=== PATIENT | male | born 1945 | race Caucasian/White ===

== ENCOUNTER → 2019-07-13 11:08 | Outpatient (CLI) | payer MEDICARE, SELFPAY ==
[2019-07-13 12:10] LABS: Appearance Urine UA CLOUDY; Bilirubin Urine UA NEGATIVE (NEGATIVE); Color Urine UA RED; Glucose Urine UA NEGATIVE (Negative); Ketones Urine UA NEGATIVE (NEGATIVE); Leukocyte Esterase Urine UA TRACE (NEGATIVE); Nitrite Urine UA POSITIVE (Negative); Occult Blood Urine UA 3+ (Negative); Protein Urine UA 2+ (Negative); Specific Gravity Urine UA 1.015 (1.000-1.035); Urobilinogen Urine UA 0.2 E.U./dL (0.2); pH Urine UA 6.5 (4.5-8.0)
[2019-07-13 12:47] LABS: Bacteria Urine Moderate (10-30); Culture Indicated Urine Specimen Cultured; RBC Urine >100/HPF (0-5/HPF); WBC Urine 1-5/HPF (0-5/HPF)
== END ==
PROVIDERS: Family Provider Internal Medicine; PCP Internal Medicine; Referring Provider Internal Medicine; Visit Provider Internal Medicine
DX: R31.9 Hematuria, unspecified (principal); N40.0 Benign prostatic hyperplasia without lower urinary tract symptoms
CPT/HCPCS: 36415; 81001; 84153; 87086

== ENCOUNTER → 2019-07-27 13:34 | Outpatient (CLI) | payer MEDICARE, SELFPAY ==
[2019-07-27 14:07] LABS: Hematocrit 41.6 % (41-53); Hemoglobin 14.5 g/dL (13.5-17.5); Mean Corpuscular HGB Conc 34.9 % (30-36); Mean Corpuscular Hemoglobin 32.4 PG (26-34); Mean Corpuscular Volume 92.8 fL (80-100); Platelet Count 158 X10^3/uL (150-400); Red Blood Cell Count 4.48 X10^6/uL (4.5-5.9); Red Cell Distribution Width 14.9 % (11.6-14.8); White Blood Cell Count 6.9 X10^3/uL (4.5-11.0)
[2019-07-27 14:48] LABS: BUN Creatinine Ratio 20.7 (6-22); Blood Urea Nitrogen 19 mg/dL (9-20); Calcium 9.3 mg/dL (8.4-10.2); Carbon Dioxide 28 mmol/L (22-32); Chloride 102 mmol/L (98-107); Estimated Glomerular Filt Rate > 60.0 mL/min (>60); Glucose 93 mg/dL (80-110); HEMOLYSIS < 15 (0-50); Sodium 139 mmol/L (137-145)
[2019-07-28 13:36] LABS: SARS CoV19 IgG Positive (Negative)
== END ==
PROVIDERS: Family Provider Internal Medicine; PCP Internal Medicine; Referring Provider Internal Medicine; Visit Provider Internal Medicine
DX: U07.1 COVID-19 (principal)
CPT/HCPCS: 36415; 80048; 85027; 86769

== ENCOUNTER → 2019-09-12 10:44 | Outpatient (CLI) | payer MEDICARE, SELFPAY ==
[2019-10-01 11:36] LABS: Stone Analysis Source NOT PROVIDED
[2019-10-01 11:37] LABS: Size 4X4
[2019-10-01 11:39] LABS: Ca oxalate monohydr 70
[2019-10-01 11:40] LABS: Ca oxalate dihydrate 30
== END ==
PROVIDERS: Family Provider Internal Medicine; PCP Internal Medicine; Visit Provider Specialist
DX: N21.0 Calculus in bladder (principal); N13.8 Other obstructive and reflux uropathy; N21.9 Calculus of lower urinary tract, unspecified; N40.1 Benign prostatic hyperplasia with lower urinary tract symptoms
CPT/HCPCS: 82365; 87086

== ENCOUNTER → 2019-09-17 12:13 | Outpatient (CLI) | payer MEDICARE, SELFPAY ==
--- NOTE | 2019-09-17 12:16 | DI.CT.S_ITS ---
PROCEDURE: CT ABDOMEN PELVIS WO/W CON INDICATIONS: bladder stone TECHNIQUE: Optional 5 mm thick noncontrast images acquired from the diaphragm to the symphysis pubis. After the administration of intravenous contrast, 5 mm thick images acquired from the diaphragm to the symphysis pubis after a 10-minute delay. 2 mm thick coronal and sagittal reformats were then performed of the kidneys and ureters. For radiation dose reduction, the following was used: automated exposure control, adjustment of mA and/or kV according to patient size. COMPARISON: None. FINDINGS: Image quality: Excellent. Lung bases: Lung bases are clear. Heart size is normal. Urinary system: Both kidneys are normal in size, without hydronephrosis or nephrolithiasis on pre-contrast images. No perinephric fat stranding. There is normal bilateral renal enhancement. Renal calyces appear normal in morphology when filled with contrast. Opacified portions of both ureters demonstrate normal caliber. Bladder wall thickness is normal. There are multiple bladder calculi present layering posteriorly against the posterior bladder wall, and there is a calculus dependently, best seen on precontrast imaging, measuring up to 3.3 cm at a stellate calculus located posteriorly on the right. Smaller 5-8 mm calculi are seen bilaterally posteriorly against the bladder wall. A calculus is present within a recess of the bladder diverticulum to the right of midline centered on series 2, image 80, and postcontrast imaging can be seen within the distal right ureter crossing just medial to this area of sequestered calculus within a small bladder diverticulum. Other solid organs: Liver is normal in size and enhancement. Gallbladder appears previously resected . Biliary system is non dilated. Pancreas enhances normally. Spleen is normal in size and enhancement. No adrenal nodules. Peritoneum and bowel: Bowel loops demonstrate normal wall thickness and caliber. No free fluid or air. Nodes and vessels: No retroperitoneal or mesenteric adenopathy by size criteria. Aorta and inferior vena cava are normal in size. Abdominal wall: No ventral hernias. Pelvis: No pathologic free pelvic fluid. No inguinal hernias or adenopathy. Bones: No suspicious bony lesions. No vertebral body compression fractures. IMPRESSION: No hydronephrosis or urinary tract stone within the collecting system of either kidney. There is, however, a finding of multiple calculi within the bladder lumen and the largest of which measures up to 3.2 cm centered to the right of midline. No bladder wall mass is identified.. Dictated by: Viraj Floyd M.D. on 09/17/2019 at 15:56 Approved by: Viraj Floyd M.D. on 09/17/2019 at 16:00
[2019-09-17 13:07] LABS: Blood Urea Nitrogen 18 mg/dL (9-20); Calcium 9.4 mg/dL (8.4-10.2); Carbon Dioxide 31 mmol/L (22-32); Chloride 105 mmol/L (98-107); Estimated Glomerular Filt Rate > 60.0 mL/min (>60); Glucose 136 mg/dL (80-110); HEMOLYSIS < 15 (0-50); Potassium 4.1 mmol/L (3.4-5.1); Sodium 139 mmol/L (137-145)
== END ==
PROVIDERS: Family Provider Internal Medicine; PCP Internal Medicine; Referring Provider Specialist; Visit Provider Specialist
DX: N21.0 Calculus in bladder (principal); N32.3 Diverticulum of bladder; N40.1 Benign prostatic hyperplasia with lower urinary tract symptoms; N13.8 Other obstructive and reflux uropathy
CPT/HCPCS: 36415; 74178; 80048; Q9967

== ENCOUNTER → 2020-01-17 09:08 | Outpatient (CLI) | payer MEDICARE, SELFPAY ==
[2020-01-17 10:58] LABS: Prostate Specific Antigen 3.11 ng/mL (0.10-4.00)
== END ==
PROVIDERS: Family Provider Internal Medicine; PCP Internal Medicine; Referring Provider Specialist; Visit Provider Specialist
DX: N13.8 Other obstructive and reflux uropathy (principal); N40.1 Benign prostatic hyperplasia with lower urinary tract symptoms
CPT/HCPCS: 36415; 84153

== ENCOUNTER → 2020-03-26 19:35 | Outpatient (ROUT) | payer MEDICARE, SELFPAY ==
[2020-03-26 20:00] LABS: Aspartate Aminotransferase 55 IU/L (17-59); BUN Creatinine Ratio 19.1 (6-22); Blood Urea Nitrogen 18 mg/dL (9-20); Calcium 9.2 mg/dL (8.4-10.2); Carbon Dioxide 32 mmol/L (22-32); Chloride 106 mmol/L (98-107); Cholesterol 130 mg/dL (140-199); Estimated Glomerular Filt Rate > 60.0 mL/min (>60); Glucose 121 mg/dL (80-110); HDL Cholesterol 45 mg/dL (40-60); HEMOLYSIS < 15 (0-50); LDL Cholesterol Calculated 73 mg/dL (<100); Potassium 3.7 mmol/L (3.4-5.1); Sodium 140 mmol/L (137-145); Triglycerides 62 mg/dL (35-150)
[2020-03-26 20:03] LABS: Hemoglobin A1C% w Est Avg Glu 6.3 % (4.0-6.0)
== END ==
PROVIDERS: Family Provider Internal Medicine; PCP Internal Medicine; Visit Provider Internal Medicine
DX: I10 Essential (primary) hypertension (principal); E78.2 Mixed hyperlipidemia; R73.01 Impaired fasting glucose
CPT/HCPCS: 80048; 80061; 83036; 84450

== ENCOUNTER → 2020-08-12 14:39 | Outpatient (CLI) | payer OTHER, SELFPAY ==
[2020-08-12 16:17] LABS: Prostate Specific Antigen 3.35 ng/mL (0.10-4.00)
== END ==
PROVIDERS: Family Provider Internal Medicine; PCP Internal Medicine; Referring Provider Specialist; Visit Provider Specialist
DX: N40.1 Benign prostatic hyperplasia with lower urinary tract symptoms (principal); N13.8 Other obstructive and reflux uropathy; N21.0 Calculus in bladder; Z87.440 Personal history of urinary (tract) infections
CPT/HCPCS: 36415; 81002; 84153; 99215

== ENCOUNTER → 2021-02-02 09:56 | Outpatient (CLI) | payer OTHER, SELFPAY ==
[2021-02-02 12:43] LABS: Prostate Specific Antigen Scrn 3.71 ng/mL (0.1-4.0)
== END ==
PROVIDERS: Family Provider Internal Medicine; PCP Internal Medicine; Referring Provider Specialist; Visit Provider Specialist
DX: R97.20 Elevated prostate specific antigen [PSA] (principal)
CPT/HCPCS: 36415; G0103

== ENCOUNTER → 2021-07-02 14:19 | Outpatient (CLI) | payer OTHER, SELFPAY ==
[2021-07-02 15:32] LABS: Influenza A - CEPHEID Flu A NEGATIVE (NEGATIVE); Influenza B - CEPHEID Flu B NEGATIVE (NEGATIVE)
[2021-07-02 16:29] LABS: COVID-19 CEPHEID PCR (VTM/NP) Negative (Negative)
== END ==
PROVIDERS: Family Provider Internal Medicine; PCP Internal Medicine; Visit Provider Nurse Practitioner Family
DX: R05.9 Cough, unspecified (principal); Z20.822 Contact with and (suspected) exposure to COVID-19
CPT/HCPCS: 0240U

== ENCOUNTER → 2021-07-15 14:33 | Outpatient (CLI) | payer MEDICARE, SELFPAY ==
[2021-07-15 15:28] LABS: Hematocrit 41.5 % (41-53); Hemoglobin 14.1 g/dL (13.5-17.5); Mean Corpuscular HGB Conc 33.9 % (30-36); Mean Corpuscular Hemoglobin 31.4 PG (26-34); Mean Corpuscular Volume 92.7 fL (80-100); Platelet Count 312 X10^3/uL (150-400); Red Blood Cell Count 4.48 X10^6/uL (4.5-5.9); Red Cell Distribution Width 13.3 % (11.6-14.8); White Blood Cell Count 6.9 X10^3/uL (4.5-11.0)
[2021-07-15 16:55] LABS: Alanine Aminotransferase 39 IU/L (<50); Albumin Globulin Ratio 0.9 (1.0-2.8); Alkaline Phosphatase 112 U/L (38-126); Aspartate Aminotransferase 39 IU/L (17-59); BUN Creatinine Ratio 19.4 (6-22); Blood Urea Nitrogen 18 mg/dL (9-20); Calcium 9.1 mg/dL (8.4-10.2); Carbon Dioxide 32 mmol/L (22-32); Chloride 105 mmol/L (98-107); Cholesterol 147 mg/dL (140-199); Estimated Glomerular Filt Rate > 60 mL/min (>60); Globulin 4.3 g/dL (1.7-4.1); Glucose 105 mg/dL (80-110); HDL Cholesterol 32 mg/dL (40-60); HEMOLYSIS < 15 (0-50); LDL Cholesterol Calculated 100 mg/dL (<100); Potassium 4.2 mmol/L (3.4-5.1); Sodium 140 mmol/L (137-145); Total Protein 8.3 g/dL (6.3-8.2); Triglycerides 76 mg/dL (35-150)
[2021-07-15 17:05] LABS: TSH w/ Reflex to FT4 2.61 uIU/mL (0.47-4.68)
[2021-07-15 17:27] LABS: Prostate Specific Antigen 5.38 ng/mL (0.10-4.00)
== END ==
PROVIDERS: Family Provider Internal Medicine; PCP Internal Medicine; Referring Provider Internal Medicine; Visit Provider Internal Medicine
DX: E78.2 Mixed hyperlipidemia (principal); I10 Essential (primary) hypertension; N13.8 Other obstructive and reflux uropathy; N40.1 Benign prostatic hyperplasia with lower urinary tract symptoms
CPT/HCPCS: 36415; 80053; 80061; 84153; 84443; 85027

== ENCOUNTER → 2022-06-14 13:57 | Outpatient (CLI) | payer MEDICARE, SELFPAY ==
[2022-06-14 15:16] LABS: Prostate Specific Antigen 4.13 ng/mL (0.10-4.00)
== END ==
PROVIDERS: Family Provider Internal Medicine; PCP Internal Medicine; Referring Provider Urology; Visit Provider Urology
DX: Z12.5 Encounter for screening for malignant neoplasm of prostate (principal)
CPT/HCPCS: 36415; 84153; G0103

== ENCOUNTER → 2022-07-29 10:22 | Outpatient (CLI) | payer MEDICARE, SELFPAY ==
[2022-07-29 11:27] LABS: Hematocrit 43.1 % (41-53); Hemoglobin 14.8 g/dL (13.5-17.5); Mean Corpuscular HGB Conc 34.3 % (30-36); Mean Corpuscular Hemoglobin 32.2 PG (26-34); Mean Corpuscular Volume 93.6 fL (80-100); Platelet Count 164 X10^3/uL (150-400); Red Cell Distribution Width 13.6 % (11.6-14.8); White Blood Cell Count 6.7 X10^3/uL (4.5-11.0)
[2022-07-29 11:48] LABS: Alanine Aminotransferase 42 IU/L (<50); Albumin 4.1 g/dL (3.5-5.0); Albumin Globulin Ratio 1.1 (1.0-2.8); Alkaline Phosphatase 104 U/L (38-126); Aspartate Aminotransferase 45 IU/L (17-59); BUN Creatinine Ratio 17.2 (6-22); Bilirubin Total 1.7 mg/dL (0.2-1.3); Blood Urea Nitrogen 16 mg/dL (9-20); Calcium 9.1 mg/dL (8.4-10.2); Carbon Dioxide 27 mmol/L (22-32); Chloride 103 mmol/L (98-107); Cholesterol 133 mg/dL (140-199); Estimated Glomerular Filt Rate > 60 mL/min (>60); Globulin 3.7 g/dL (1.7-4.1); Glucose 124 mg/dL (80-110); HDL Cholesterol 36 mg/dL (40-60); HEMOLYSIS 17 (0-50); LDL Cholesterol Calculated 82 mg/dL (<100); Sodium 137 mmol/L (137-145); Total Protein 7.8 g/dL (6.3-8.2); Triglycerides 73 mg/dL (35-150)
[2022-07-29 12:02] LABS: TSH w/ Reflex to FT4 2.02 uIU/mL (0.47-4.68)
[2022-07-29 12:15] LABS: Prostate Specific Antigen 4.96 ng/mL (0.10-4.00)
[2022-07-30 05:47] LABS: Labcorp Hemoglobin (Hb) A1c 6.3 % (4.8-5.6)
== END ==
PROVIDERS: Family Provider Internal Medicine; PCP Internal Medicine; Referring Provider Internal Medicine; Visit Provider Internal Medicine
DX: E78.2 Mixed hyperlipidemia (principal); I10 Essential (primary) hypertension; N40.1 Benign prostatic hyperplasia with lower urinary tract symptoms; K59.01 Slow transit constipation; R73.01 Impaired fasting glucose; N13.8 Other obstructive and reflux uropathy
CPT/HCPCS: 36415; 80053; 80061; 83036; 84153; 84443; 85027

== ENCOUNTER → 2023-07-19 10:07 | Outpatient (CLI) | payer MEDICARE, SELFPAY ==
[2023-07-19 12:17] LABS: Prostate Specific Antigen 5.04 ng/mL (0.10-4.00)
== END ==
PROVIDERS: Family Provider Internal Medicine; PCP Internal Medicine; Referring Provider Urology; Visit Provider Urology
DX: Z12.5 Encounter for screening for malignant neoplasm of prostate (principal)
CPT/HCPCS: 36415; 84153

== ENCOUNTER → 2023-07-27 10:46 | Outpatient (CLI) | payer MEDICARE, SELFPAY ==
[2023-07-27 12:22] LABS: Aspartate Aminotransferase 33 IU/L (17-59); BUN Creatinine Ratio 18.1 (6-22); Blood Urea Nitrogen 17 mg/dL (9-20); Calcium 9.2 mg/dL (8.4-10.2); Carbon Dioxide 29 mmol/L (22-32); Chloride 107 mmol/L (98-107); Cholesterol 129 mg/dL (140-199); Estimated Glomerular Filt Rate > 60 mL/min (>60); Glucose 132 mg/dL (80-110); HDL Cholesterol 48 mg/dL (40-60); HEMOLYSIS < 15 (0-50); LDL Cholesterol Calculated 70 mg/dL (<100); Potassium 4.5 mmol/L (3.4-5.1); Sodium 142 mmol/L (137-145); Triglycerides 53 mg/dL (35-150)
== END ==
PROVIDERS: Family Provider Internal Medicine; PCP Internal Medicine; Referring Provider Internal Medicine; Visit Provider Internal Medicine
DX: R73.01 Impaired fasting glucose (principal); E78.2 Mixed hyperlipidemia; I10 Essential (primary) hypertension
CPT/HCPCS: 36415; 80048; 80061; 83036; 84450

== ENCOUNTER → 2023-08-22 13:16 | Outpatient (CLI) | payer MEDICARE, SELFPAY ==
--- NOTE | 2023-08-22 13:17 | DI.CT.S_ITS ---
PROCEDURE: CT KIDNEY URETER BLADDER (KUB) INDICATIONS: BLADDER STONE TECHNIQUE: Axial sections were acquired from the lung bases to the pubic symphysis. Coronal and sagittal reformats were performed. For radiation dose reduction, the following was used: automated exposure control, adjustment of mA and/or kV according to patient size. COMPARISON: [facility], CT, CT ABDOMEN PELVIS WO/W CON, 09/17/2019, 13:34. FINDINGS: Image quality: Diagnostic. Lower Chest: No significant findings. URINARY: Right Kidney: No stones or hydronephrosis. Right Ureter: No hydroureter. Somewhat limited evaluation of the distal right ureter as it crosses the aorta. Left Kidney: No stones or hydronephrosis. Left Ureter: No hydroureter. Bladder: Large spiculated stone in the right dependent portion of the bladder, measuring 4.3 cm increase in size in comparison to prior exam. This stone extends into the right distal ureter. Additional multiple subcentimeter stone layering dependently in the dependent portion of the bladder, grossly unchanged. ABDOMEN: Liver: Subcentimeter hypoattenuating lesion in hepatic segment 4A, too small to be characterized. Gallbladder: Surgically absent. Biliary ducts: No biliary dilation. Pancreas: No ductal dilation. Spleen: Size is within normal limits. Adrenal Glands: No adrenal nodules. Stomach and Bowel: Colonic diverticulosis, most pronounced and severe in the proximal sigmoid colon. No diverticulitis. The appendix is not visualized. No bowel obstruction or bowel wall thickening. Peritoneum: No abnormal intraperitoneal fluid. No free air. Ventral Wall: Small fat containing umbilical hernia. Abdominal Nodes: No enlarged retroperitoneal or mesenteric lymph nodes. Vessels: 1.4 cm right common iliac artery aneurysm. Severe calcification of the abdominal aorta. No abdominal aortic aneurysm. PELVIS: Pelvic Organs: The prostate is mildly enlarged and contains calcification. Pelvic Nodes: Unremarkable. Miscellaneous: No inguinal hernias are seen. Bones: Multiple small Schmorl's nodes in the lumbar spine. IMPRESSION: 1. 4.3 cm spiculated stone in the right hip and a portion of the bladder, with slight interval increase in size, and short-segment extension into the right distal ureter. 2. Additional multiple sub cm bladder stone, grossly unchanged from prior exam. 3. No hydronephrosis or hydroureter. 4. Additional chronic findings described above. Dictated by: Elizabeth Evans M.D. on 08/22/2023 at 16:03 Approved by: Elizabeth Evans M.D. on 08/22/2023 at 16:18
== END ==
PROVIDERS: Family Provider Internal Medicine; PCP Internal Medicine; Referring Provider Urology; Visit Provider Urology
DX: N21.0 Calculus in bladder (principal); K57.30 Diverticulosis of large intestine without perforation or abscess without bleeding; K42.9 Umbilical hernia without obstruction or gangrene; N40.0 Benign prostatic hyperplasia without lower urinary tract symptoms; Z90.49 Acquired absence of other specified parts of digestive tract; I70.0 Atherosclerosis of aorta
CPT/HCPCS: 74176

== ENCOUNTER → 2024-06-15 10:35 | Outpatient (CLI) | payer MEDICARE, SELFPAY | PROVIDERS: Family Provider Internal Medicine; PCP Internal Medicine; Visit Provider Urology | DX: N40.1 Benign prostatic hyperplasia with lower urinary tract symptoms (principal); N13.8 Other obstructive and reflux uropathy | CPT/HCPCS: 87086 ==

== ENCOUNTER 2024-06-26 10:20 | Day surgery (SDC) | payer MEDICARE, SELFPAY ==
[2024-06-20 09:40] VITALS: BMI 24.3
[2024-06-26] VITALS (8 sets, daily range): BP systolic 120–139; BP diastolic 71–83; PULSE 73–88; RESP 12–17; TEMP 35.8–36.6; O2SAT 93–98; BMI 24.3
[2024-06-26] MEDS: LACTATED RINGERS 1,000 ML 21 ML IV ×2 (10:56→15:10)
[2024-06-26] MEDS: ACETAMINOPHEN 325 MG TABLET 975 MG PO (10:56)
[2024-06-26] MEDS: FAMOTIDINE 20 MG/2 ML VIAL IV (10:56)
[2024-06-26] MEDS: PREGABALIN 75 MG CAPSULE PO (10:56)
--- NOTE | 2024-06-26 13:18 | PM.PREOP ---
Pre-operative Note COVID-19 COVID-19 status: Not tested Interval Note History & Physical reviewed/Exam performed by Physician: Yes Changes to H&P: No
--- NOTE | 2024-06-26 13:32 | EKG_ITS ---
[address] [address] Test Date: 2024-06-26 Pat Name: Dwight Mcgovern Department: [facility] Room: 224 Gender: Male Vat Washer: ANA : 1945 Requested By: Order Number: [id number] Reading MD: Devyn Lara MD Measurements Intervals [place] Rate: 75 P: 48 WV: 134 QRS: 32 QRSD: 72 T: 33 QT: 388 QTc: 433 Interpretive Statements Normal sinus rhythm Electronically Signed On 06-27-2024 6:57:16 PDT by Devyn Lara MD
[2024-06-26] MEDS: CLINDAMYCIN 900 MG/50 ML PIGGYBACK 50 MG IV (13:45)
--- NOTE | 2024-06-26 14:38 | SUR.OPER ---
Supine on padded OR bed, PINK PAD ON BED, head on pillow, arms padded and tucked at sides, legs uncrossed, safety belt at thigh, tape over blanket over lower legs .
[2024-06-26] MEDS: LIDOCAINE 1% 20 ML INJ (14:55)
[2024-06-26] MEDS: BUPIVACAINE 0.25% W/ EPI 30 ML VIAL 40 ML INJ (14:56)
[2024-06-26] MEDS: OXYCODONE IR 5 MG TABLET PO (17:04)
[2024-06-26] MEDS: ONDANSETRON 4 MG/2 ML INJ IV (17:04)
--- NOTE | 2024-06-26 17:06 | PM.OP.1 ---
Operative Date/Time/Diagnoses Date of procedure: 06/26/24 Pre-op diagnosis: Bladder calculus Post-op diagnosis: same Procedure & Clinicians Procedure: Robotic cystolithotomy Same procedure as scheduled: Yes Indications: 78 y/o M noted to have symptoms consistent w/ BPH and LUTS that are currently managed w/ Alfuzosin 10mg daily and is also noted to have a 5cm bladder calculus and strongly desired surgical management via a robotic cystolithalopaxy and an Aquablation procedure ( to be completed in the next few months ). Surgeon: Camron Garner Click Yes if Unassisted: Yes Anesthesia Type: General Operative Notes Findings: Very large bladder calculus Closure Type: primary Specimen(s): other (bladder stone) Applied: catheter Estimated Blood Loss (mL): 5 Blood products transfused: none Procedure in detail: After administration of general anesthetic, this patient was placed in an extended dorsal lithotomy position. The lower abdomen and genitalia were shaved, prepped, and draped in a sterile fashion. A 16 fr Paez catheter was then passed per urethra in to the bladder and secured in the proper location by inflating the Paez balloon. A small curvilinear incision was made immediately superior to the umbilicus, we then grasped the skin edges to elevate the abdominal wall and we established a pneumoperitoneum with a Veress needle. A 12 mm trocar was then placed. The abdomen was then inspected and free of injury from the trochar placement. Under direct vision, we placed 2 additional trocars on the left side and one on the right side; the far-left lateral port being an 8 mm port for the timber management assistant, and the remainder being 8 mm da Beba ports. The ports were then connected to the [employer] surgical system. A total of 60 cc's of local anesthetic was utilized throughout the case. The bladder was then identified by distending the bladder via the paez with 240 cc of sterile water. A horizontal incision was made in the bladder. Bilateral ureteral orifices were easily identified and noted to be orthotopic in nature. The aforementioned large bladder calculus was then removed from the bladder and placed in an endocatch bag. The cystotomy was then closed in two layers using 3-0 Vicryl in a running fashion and tied in the middle. A leak test was then performed with 240 cc of sterile water and noted to be negative. The robot was undocked and the midline incision was then extended to allow for extraction of the specimen. The midline fascial incision was then closed transversely using figure-of- eight sutures of 0 Vicryl. All skin incisions were then closed using running 4-0 Monocryl. All four incisions were then covered with Dermabond. The patient was then awakened and taken to the PACU in stable condition for recovery. Complications: none Post-operative Condition: stable Disposition: Acute Care Plan for aftercare: Will keep overnight and possibly discharge home tomorrow afternoon.
[2024-06-26] MEDS: ACETAMINOPHEN 325 MG TABLET 650 MG PO (18:25)
[2024-06-26] MEDS: OXYBUTYNIN 5 MG TABLET PO ×2 (18:25→20:58)
[2024-06-27] VITALS: BP 113/69; PULSE 86; RESP 18; TEMP 36.1; O2SAT 95
[2024-06-27 04:00] VITALS: BP 128/73; PULSE 81; RESP 18; TEMP 36; O2SAT 95
[2024-06-27 06:31] LABS: Add Manual Diff / Slide Review NO; Basophils Absolute Auto 0 /uL (0-100); Basophils Percent Auto 0.1 % (0-2); Eosinophils Absolute Auto 0 /uL (0-450); Hematocrit 38.4 % (41-53); Hemoglobin 13.3 g/dL (13.5-17.5); Lymphocytes Absolute Auto 1400 /uL (1100-4500); Lymphocytes Percent Auto 12.5 % (25-40); Mean Corpuscular HGB Conc 34.7 % (30-36); Mean Corpuscular Hemoglobin 32.2 PG (26-34); Monocytes Absolute Auto 600 /uL (0-900); Monocytes Percent Auto 5.8 % (3-14); Neutrophils Absolute Auto 9000 /uL (1500-7000); Neutrophils Percent Auto 81.6 % (50-75); Platelet Count 138 X10^3/uL (150-400); Red Blood Cell Count 4.13 X10^6/uL (4.5-5.9); Red Cell Distribution Width 13.4 % (11.6-14.8); White Blood Cell Count 11.1 X10^3/uL (4.5-11.0)
[2024-06-27 06:46] LABS: BUN Creatinine Ratio 15.1 (6-22); Blood Urea Nitrogen 13 mg/dL (9-20); Calcium 8.7 mg/dL (8.4-10.2); Carbon Dioxide 25 mmol/L (22-32); Chloride 107 mmol/L (98-107); Estimated Glomerular Filt Rate > 60 mL/min (>60); Glucose 129 mg/dL (70-99); HEMOLYSIS < 15 (0-50); Potassium 4.3 mmol/L (3.4-5.1); Sodium 138 mmol/L (137-145)
[2024-06-27 08:00] VITALS: BP 131/79; PULSE 82; RESP 16; TEMP 36.9; O2SAT 96
--- NOTE | 2024-06-27 08:00 | PM.PNPO.1 ---
Subjective Subjective Date Patient Seen: 06/27/24 Time Patient Seen: 08:01 Interval history: 79 y/o M w/ BPH and LUTS as well as a large bladder calculus who is now POD 1 s/p a robotic assisted cystolithotomy. He tolerated the aforementioned procedure without any complications and had an uneventful evening in the hospital. He is tolerating a clear liquid diet without any nausea or vomiting. Exam Vital Signs (past 8 hours): - 06/27/24 04:00 Temperature 96.8 F L Pulse Rate 81 Respiratory Rate 18 Blood Pressure 128/73 Pulse Oximetry 95 Oxygen Flow Rate 0 Oxygen Delivery Method Room Air Oxygen Flow Rate 0 Narrative Exam Narrative: GEN: Alert and oriented X3. No acute distress. Well-nourished. EYES: PERRLA, EOMI. HENT: Moist mucus membranes, no scleral icterus, normal neck ROM. RESP: Unlabored breathing, equal rise and fall of chest bilaterally, no cyanosis appreciated. CV: No peripheral edema, unremarkable heart rate. ABD: Soft, mildly distended, appropriately tender to palpation, incisions covered with dermabond. : Mtz catheter secured and draining clear yellow urine. EXT: No edema, clubbing or cyanosis. SKIN: No rashes or lesions. NEURO: No focal neurologic deficits, CN II-XII grossly intact. PSYCH: Cooperative, appropriate mood and affect. Objective Labs 06/27/24 06:00 06/27/24 06:00 Labs: Laboratory Results - last 24 hr 06/27/24 06:00 WBC 11.1 H RBC 4.13 L Hgb 13.3 L Hct 38.4 L MCV 93.0 MCH 32.2 MCHC 34.7 RDW 13.4 Plt Count 138 L Neut % (Auto) 81.6 H Lymph % (Auto) 12.5 L [place] % (Auto) 5.8 Eos % (Auto) 0.0 L Baso % (Auto) 0.1 Neut # (Auto) 9000 H Lymph # (Auto) 1400 [place] # (Auto) 600 Eos # (Auto) 0 Baso # (Auto) 0 Sodium 138 Potassium 4.3 Chloride 107 Carbon Dioxide 25 BUN 13 Creatinine 0.86 Estimated GFR > 60 BUN/Creatinine Ratio 15.1 Glucose 129 H Calcium 8.7 PFSH Medical History Slow transit constipation Impaired fasting glucose History of colonic polyps Foot pain (~2015) Mumps Chicken pox Cataracts, bilateral (~2017) Erectile dysfunction BPH w urinary obs/LUTS Mixed hyperlipidemia Essential hypertension Gross hematuria Bladder calculi Urolithiasis Right ACL tear Disorder of ligament, left shoulder Colon polyps Lumbar degenerative disc disease Chronic insomnia Kidney stone (~1985) Erectile dysfunction BPH (benign prostatic hyperplasia) Glucose intolerance Hyperlipidemia Hypertension Elevated PSA Acute prostatitis Surgical History History of cataract extraction Anesthesia History of knee surgery History of shoulder surgery (~07/1960) Hx laparoscopic cholecystectomy (~2010) History of appendectomy (~1968) Hx of tonsillectomy (~1966) Family History Father Pneumonia Mother Alzheimer's disease Family/Other Embolism Social History details: (Kathryn Donnelly), 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 He is recovering as expected at this point. - Will continue to hydrate well - Will walk 3-4 laps around the hallways before lunch - Will advance to a regular diet this morning - Likely discharge home later this afternoon Postoperative Procedures: Procedures Operation Date: 06/26/24 11:45 Actual Procedure Side Surgeon p Robotic Cystolitholapaxy Camron Garner DO Time Spent With Patient Time with patient: 15-24 minutes Quality VTE Deep Vein Thrombosis/Pulmonary Embolism Present on Admission: No
[2024-06-27 08:05] VITALS: BP 131/79; PULSE 78
[2024-06-27] MEDS: lisinopriL 10 MG TABLET PO (08:05)
[2024-06-27] MEDS: ATORVASTATIN 20 MG TABLET PO (08:06)
[2024-06-27] MEDS: hydroCHLOROthiazide 25 MG TABLET 12.5 MG PO (08:06)
[2024-06-27] MEDS: MULTIVITAMIN 1 TABLET 1 TAB PO (08:06)
[2024-06-27] MEDS: OXYBUTYNIN 5 MG TABLET PO (08:06)
[2024-06-27] MEDS: ACETAMINOPHEN 325 MG TABLET 650 MG PO (08:09)
--- NOTE | 2024-06-27 12:01 | CM.DANOTE ---
DCP Assessment note pt is a 79yo M POD 1 s/p a robotic assisted cystolithotomy with Dr. Garner. PCP Estephanie SALDAÑA Medicare and self pay SENIOR ENERGY ANALYST reviewed EMR per provider note, should dc later today after ambulating/tolerating diet. SENIOR ENERGY ANALYST met with pt in room and introduced self and role. pt lives indep with partner in [place]. active, no DME at baseline. has been walking halls during admission. partner Kathryn to transport home. pt reports recent loss of dtr and struggling with grief. no SI/HI indicated. no hx of MH diagnosis/medications. SENIOR ENERGY ANALYST offered emotional support and community grief/bereavement and counseling resources. pt appreciative. denies other CM/DCP needs at this time. SENIOR ENERGY ANALYST updated TCM. P anticipate dc later today with partner support and OP f/u. no CM needs at this time.. will continue to follow in case any DCP needs arise. CAL Brown Discharge Planning/Care Management Advanced directive, confirm from FAMILY Start: 06/26/24 17:47 Freq: Q24H Status: Active Protocol: Document 06/26/24 17:47 BT (Rec: 06/26/24 17:50 BT [id number]) Advance Directive, confirm on record Time 17:50 Person contacted Pt Copy received No CM Discharge Assessment Start: 06/27/24 11:51 Freq: Status: Active Protocol: Document 06/27/24 11:51 SL (Rec: 06/27/24 11:51 SL Desktop) Discharge Planning Assessment Assigned Bridge Operator CAL Arauz DPOA/Assigned Designee Name giana Peralta partner Contact Information [phone] Advance Directives? Yes Advance Directives on File Yes History Provided By Patient,Family Member Prior Living Arrangements House Household Members significant other Type of transporation used prior to Drives own vehicle admit Independent with ADL's Yes Is patient alert and oriented? Yes Barriers to Discharge No Discharge Plan Home Referrals Initiated None needed Whiteboard Updated in Patient Room with Yes name and ext. # of Bridge Operator Review Status In Process Please Provide Date Initial DC 06/27/24 Assessment Was Performed Next Review Type Continued Stay Review Pre-Anesthesia Assessment Start: 06/20/24 09:40 Freq: Status: Complete Protocol: Document 06/20/24 09:40 LB (Rec: 06/20/24 10:32 LB [id number]) Pre-Anesthesia Assessment PAC Comment 06/20/24 Phone assessment. Preferred Name Dwight Patient Information Reviewed Via Phone Assessment Assessment Completed With Patient Diagnostic Results Urinalysis Comment 05/30/24 at . Primary Care Provider Geraldo Hummel Seen Specialist in Last 12 Months Yes Specialist Seen Urologist Primary Language Cameroonian Preferred Language Cameroonian Branding Specialist Required No Height 175.26 cm Weight 74.843 kg Body Mass Index (BMI) 24.3 Hearing Ability Normal Visual Assist Glasses Dentition Type Teeth, Natural Present Barriers to Learning None Other Aids No Hx Anesthesia Reactions Yes: Urinary retention with spinal. Hx Family Anesthesia Reaction No Hx Malignant Hyperthermia No Hx Blood Transfusions No Anesthesia Review Requested No Gamma Facilities Operator No alcohol intake current alcohol intake frequency holidays/special occasions only Smoking Status Never smoker Substance Use Type [#R] does not use Pain Present Denied Pain History of Falling (Recent or History of No ) Patient is completely paralyzed or No completely immobile Mental Status Oriented to own ability Is patient on oxygen? No Does patient have HINOJOSA/SOB No Hx Sleep Apnea No Currently Taking a Beta Michelle No Can You Climb a Flight of Stairs Without Yes SOB Hx Chest Pain Yes: Mild pain - ? R/T recent loss of daughter. Hx SOB No Hx Syncope or Dizziness No Anti-Coagulant Therapy No Has a Developing Machine Tender No Cardiac Testing No Hx Pacemaker/ICD No Cardiac Clearance Received Not Applicable Dysphagia No Gastrointestinal Symptoms Reflux Comment R/T level of spice. Genitourinary Symptoms Hematuria Bladder Pattern Hesitancy,Nocturia Comment Intermittent hematuria with physical activity. Date 07/30/23 Hx Drug Resistant Organism No Presence of External or Internal Medical Yes: Bilateral IOL. Devices Have you had any close contact with No someone diagnosed with COVID-19? Are you experiencing any of these No symptoms symptoms? Comment Denies covid last 8 weeks. Marital Status Life Partner Lives With significant other Current Living Arrangements House Number of Floors (Floors) 3 or More Floors Number of Stairs To Enter/Railing? Main floor living. Support System Significant Other Does the Patient Have Assistance After Yes Surgery Patient Discharge Plan Description Return Home Comment Advised overnight LOS. Feels Safe in Current Environment Yes Emergency Contact Name Kathryn Donnelly - Life partner Emergency Contact Advance Directives? Yes Advance Directives on File Yes Requested Patient Bring Advanced Not Applicable Directives DOS Power of Data Analysis Intern Yes Power of Data Analysis Intern Name Kathryn Donnelly - Life partner Power of Data Analysis Intern PAC Instructions Do not shave/clip surgical site,Medications to take/avoid ,No ETOH/petroleum product on skin DOS,NPO,Post-op transportation,Pre-surgical wash,Sensory aids,Sturdy shoes /comfortable clothes,Do not bring valuables and remove jewelry
[2024-07-04 20:36] LABS: Ca oxalate dihydrate 10 % (.); Ca oxalate monohydr 90 % (.)
== END 2024-06-27 14:15 | disposition home or self-care (01) ==
LOC: AC 06-27 13:44 → OR 06-28 09:27
PROVIDERS: Family Provider Internal Medicine; PCP Internal Medicine; Referring Provider Urology; Visit Provider Urology
PROC: 0TCB8ZZ Extirpation of Matter from Bladder, Via Natural or Artificial Opening Endoscopic (ICD-10-PCS; CPT 51050; principal; 2024-06-26 11:45)
DX: N21.0 Calculus in bladder (principal); N40.1 Benign prostatic hyperplasia with lower urinary tract symptoms; R33.9 Retention of urine, unspecified; R35.1 Nocturia
CPT/HCPCS: 51050; 36415; 80048; 82365; 85025; 93005; 93010; J0330; J1100; J2405; J2704; J3010; J3490

== ENCOUNTER → 2024-07-11 08:02 | Outpatient (CLI) | payer MEDICARE, SELFPAY ==
[2024-06-26 10:21] VITALS: BMI 24.3
--- NOTE | 2024-07-11 08:04 | DI.CT.S_ITS ---
PROCEDURE: CT CYSTOGRAM INDICATIONS: 79 y/o M s/p cystolithotomy, eval for bladder leak TECHNIQUE: Both before and after gravity instillation of 10% Isovue contrast solution into the bladder through a Mtz catheter, 5 mm axial images acquired from the bladder dome to the symphysis. 5 mm thick coronal and sagittal reformats were acquired. For radiation dose reduction, the following was used: automated exposure control, adjustment of mA and/or kV according to patient size. COMPARISON: [facility], CT, CT KIDNEY URETER BLADDER (KUB), 08/22/2023, 13:48. FINDINGS: Image quality: Diagnostic. Bladder: Mtz catheter in place. Normal wall thickness, accounting for underdistension. No perivesicular fat stranding. Multiple bladder wall diverticula. Stones are seen layering posteriorly within the urinary bladder on precontrast imaging. No extraluminal contrast is identified. Distal Ureters: No abnormal distension. PELVIS: Peritoneum and Bowel: Diverticulosis of the sigmoid colon with some associated wall thickening. No significant surrounding inflammation. Pelvic Organs: Prostate is enlarged with coarse calcifications.. Pelvic Nodes: No enlarged lymph nodes. Miscellaneous: No inguinal hernias are seen. Fat stranding around the umbilicus, may be postsurgical. Small umbilical hernia containing fat. Atherosclerotic vascular calcifications. Bones: No aggressive osseous abnormality. Degenerative changes of the visualized lower lumbar spine. IMPRESSION: 1. No evidence of extraluminal contrast extravasation. 2. Multiple stones layering posteriorly within the urinary bladder. 3. Urinary bladder diverticulum, likely sequela of chronic bladder outlet obstruction due to prostatomegaly. 4. Sigmoid diverticulosis with some associated wall thickening. No significant surrounding inflammation. Findings may may be due to chronic inflammation. Consider age-appropriate colonoscopy screening to exclude underlying neoplasm. Dictated by: Thomas Cevallos M.D. on 07/11/2024 at 9:04 Approved by: Thomas Cevallos M.D. on 07/11/2024 at 9:11
== END ==
PROVIDERS: Family Provider Internal Medicine; PCP Internal Medicine; Referring Provider Urology; Visit Provider Urology
DX: S37.23XA Laceration of bladder, initial encounter (principal); K57.30 Diverticulosis of large intestine without perforation or abscess without bleeding; N40.0 Benign prostatic hyperplasia without lower urinary tract symptoms; K42.9 Umbilical hernia without obstruction or gangrene; N32.3 Diverticulum of bladder
CPT/HCPCS: 72194; Q9967

== ENCOUNTER 2024-07-13 23:48 | Emergency (ER) | payer MEDICARE, SELFPAY ==
[2024-06-26 10:21] VITALS: BMI 24.3
[2024-07-14 00:07] VITALS: BP 158/87; PULSE 105; RESP 16; TEMP 36.4; O2SAT 97; BMI 24.3
[2024-07-14] MEDS: LIDOCAINE 2% (GLYDO) 6 ML GEL TOP (00:40)
[2024-07-14 01:44] VITALS: BP 122/74; PULSE 91; RESP 16; O2SAT 94
[2024-07-14 01:52] LABS: Appearance Urine UA CLEAR; Bilirubin Urine UA NEGATIVE (NEGATIVE); Color Urine UA YELLOW; Glucose Urine UA NEGATIVE (Negative); Ketones Urine UA NEGATIVE (NEGATIVE); Leukocyte Esterase Urine UA NEGATIVE (NEGATIVE); Nitrite Urine UA NEGATIVE (Negative); Occult Blood Urine UA NEGATIVE (Negative); Protein Urine UA NEGATIVE (Negative); Urobilinogen Urine UA 0.2 E.U./dL (0.2)
[2024-07-14 01:53] LABS: Bacteria Urine Occasional (0-1); Culture Indicated Urine Cult Not Indicated; RBC Urine 0-1/HPF (0-5/HPF); Squamous Epithelial Cell Urine 0-1 /HPF (0-5/HPF); Urine Volume 10mL (spun); WBC Urine 0-1/HPF (0-5/HPF)
--- NOTE | 2024-07-14 02:06 | ED_ITS ---
HPI - General Adult General Chief complaint: Urogenital-Male Stated complaint: Unable to urinate Time Seen by Provider: 07/14/24 00:53 Source: patient Mode of arrival: Ambulatory History of Present Illness HPI narrative: 79-year-old male with history of bladder stone surgery by local urologist Dr. Garner late last month, had catheter in place that was removed Tuesday 4 days ago, still taking oral antibiotics last day of prescribed course, having difficulty urinating, lower abdominal distention. No fevers or chills. No painful urination. No loose stools black or red stools. Related Data Home Medications Medication Instructions Recorded Confirmed alfuzosin 10 mg tablet,extended 10 mg PO DAILY 07/27/23 07/11/24 release 24 hr multivitamin 1 tab PO DAILY 07/27/23 07/11/24 vitamin G90-vuopizmef factor 5,000 mcg PO 2XW 06/20/24 07/11/24 Previous Rx's Medication Instructions Recorded lisinopril 10 1 tab PO DAILY #90 tabs 05/14/24 mg-hydrochlorothiazide 12.5 mg tablet rosuvastatin 10 mg tablet 10 mg PO DAILY #90 tabs 05/14/24 gabapentin 300 mg capsule 300 mg PO BID PRN for pain #14 caps 07/02/24 Allergies Allergy/AdvReac Type Severity Reaction Status Date / Time tamsulosin AdvReac Severe Severe Verified 07/11/24 13:24 headache. ipratropium AdvReac Intermediate Headache. Verified 07/11/24 13:24 Penicillins AdvReac Unknown Hives Verified 07/11/24 13:24 Patient History Medical History Slow transit constipation Impaired fasting glucose History of colonic polyps Foot pain (~2015) Mumps Chicken pox Cataracts, bilateral (~2017) Erectile dysfunction BPH w urinary obs/LUTS Mixed hyperlipidemia Essential hypertension Gross hematuria Bladder calculi Urolithiasis Right ACL tear Disorder of ligament, left shoulder Colon polyps Lumbar degenerative disc disease Chronic insomnia Kidney stone (~1985) Erectile dysfunction BPH (benign prostatic hyperplasia) Glucose intolerance Hyperlipidemia Hypertension Elevated PSA Acute prostatitis Surgical History History of cataract extraction Anesthesia History of knee surgery History of shoulder surgery (~07/1960) Hx laparoscopic cholecystectomy (~2010) History of appendectomy (~1968) Hx of tonsillectomy (~1966) Family History Father Pneumonia Mother Alzheimer's disease Family/Other Embolism Social History details: (Kathryn Donnelly), 3 kids (1 3 days old)senior electrical project manager household members: significant other Smoking Status: Never smoker alcohol intake: current Smoking Status: Never smoker Exam Narrative Exam Narrative: GENERAL: Well-developed patient, in mild distress. HEAD: Atraumatic. Normocephalic. EYES: Pupils equal round and reactive. Extraocular motions intact. No scleral icterus. No injection or drainage. ENT: Nose without bleeding, purulent drainage. Throat without erythema, tonsillar hypertrophy or exudate. Airway patent. NECK: Trachea midline. Non tender CARDIOVASCULAR: Regular rate and rhythm without murmurs, gallops, or rubs. RESPIRATORY: Clear to auscultation. Breath sounds equal bilaterally. No wheezes, rales, or rhonchi. GASTROINTESTINAL: Abdomen soft, non-tender, nondistended. Well-healed periumbilical laparoscopy like scar, Mtz catheter in place draining clear fluid EXTREMITIES: No edema or joint tenderness. BACK: Nontender without deformity or crepitance. No flank tenderness. NEURO: AOx3. Motor functions grossly nonfocal SKIN: No rash or erythema of visible areas Initial Vital Signs Initial Vital Signs: Vital Signs Temperature 97.6 F 07/14/24 00:07 Pulse Rate 105 H 07/14/24 00:07 Respiratory Rate 16 07/14/24 00:07 Blood Pressure 158/87 H 07/14/24 00:07 Pulse Oximetry 97 07/14/24 00:07 Oxygen Delivery Method Room Air 07/14/24 00:07 Course Orders Ordered: ED Orders 07/14/24 01:15 Urinalysis and Microscopic Stat Discontinued Medications Lidocaine HCl (Lidocaine 2% (Glydo) 6 Ml Gel) 6 ml TOP NOW ONE Stop: 07/14/24 00:13 Last Admin: 07/14/24 00:40 Dose: 6 ml Documented By: LAUREN Vital Signs Vital signs: Vital Signs - 8 hr 07/14/24 00:07 07/14/24 01:44 Temperature 97.6 F Pulse Rate 105 H 91 H Respiratory Rate 16 16 Blood Pressure 158/87 H 122/74 Pulse Oximetry 97 94 Oxygen Delivery Method Room Air Room Air Medical Decision Making Lab Data Labs: Lab Results 07/14/24 Range/Units 01:15 Urine Color Yellow Urine Appearance Clear Urine pH 6.0 (4.5-8.0) Ur Specific Powell 1.010 (1.000-1.035) Urine Protein Negative (Negative) Urine Glucose (UA) Negative (Negative) g/dL Urine Ketones Negative (NEGATIVE) Urine Occult Blood Negative (Negative) Urine Nitrate Negative (Negative) Urine Bilirubin Negative (NEGATIVE) Urine Urobilinogen 0.2 (0.2) E.U./dL Ur Leukocyte Esterase Negative (NEGATIVE) Urine RBC 0-1/hpf D (0-5/HPF) Urine WBC 0-1/hpf (0-5/HPF) Ur Squamous Epith Cells 0-1 /hpf (0-5/HPF) Urine Bacteria Occasional (0-1) (None) Ur Culture Indicated? Cult not indicated Vol Urine Centrifuged 10ml (spun) MDM Narrative Medical decision making narrative: 79-year-old male status post robotic surgery for bladder stone removal late last month local urology Dr. Garner, postoperative urinary catheter remote 4 days ago, took last dose of oral antibiotic today, has increasing lower abdominal discomfort and inability to urinate today. Bladder scan show increased volume. Mtz catheter placed, decremental drainage of the bladder, total volume 1300 mL. Nonbloody. Patient feels better. Urinalysis sent to the lab. Results are pending. Urinalysis not obvious for infection. Follow up with urology Dr. Garenr on Tuesday, we will leave catheter in place for now. Discharged home with . Return precautions discussed. Discharge Plan Departure Patient Disposition: Home Clinical Impression: Acute urinary retention Instructions: DI for Urinary Retention in Men Activity Restrictions/Additional Instructions: Recent bladder stone removal surgery by local urologist, postoperative catheter removed 4 days ago, completed course of oral antibiotics, difficulty with urination and increasing lower abdominal discomfort. Urinary retention suspected. Mtz catheter placed, volume 1300 mL drained from the bladder without gross bloody or purulent appearance. Urinalysis not obvious for infection. We will leave catheter in place for now. Call the office of your urologist on Tuesday. Return earlier to this/nearest emergency department for any change worsening symptoms or any concerns prior. Prescriptions: No Action rosuvastatin 10 mg tablet 10 mg PO DAILY Qty: 90 3RF lisinopril-hydrochlorothiazide 10-12.5 mg tablet 1 tab PO DAILY Qty: 90 3RF gabapentin 300 mg capsule 300 mg PO BID PRN (Reason: for pain) Qty: 14 0RF alfuzosin 10 mg tablet extended release 24 hr 10 mg PO DAILY Rx Instructions: administer after the same meal each day multivitamin Tablet 1 tab PO DAILY vitamin J75-uszppbuab factor 5,000 mcg PO 2XW Referrals: Camron Garner DO [Physician] - Geraldo Hummel MD [Primary Care Provider] - Stand Alone Forms: Patient Portal/API/Survey
== END 2024-07-14 02:57 | disposition home or self-care (01) ==
PROVIDERS: Emergency Provider Emergency Medicine; Family Provider Internal Medicine; PCP Internal Medicine
DX: R33.9 Retention of urine, unspecified (principal)
CPT/HCPCS: 51702; 81001; 99283

== ENCOUNTER → 2024-07-23 14:46 | Outpatient (CLI) | payer MEDICARE, SELFPAY ==
[2024-06-26 10:21] VITALS: BMI 24.3
== END ==
PROVIDERS: Family Provider Internal Medicine; PCP Internal Medicine; Visit Provider Urology
DX: N40.1 Benign prostatic hyperplasia with lower urinary tract symptoms (principal); N13.8 Other obstructive and reflux uropathy; N20.9 Urinary calculus, unspecified
CPT/HCPCS: 87077; 87086; 87186

== ENCOUNTER → 2024-08-15 11:31 | Outpatient (CLI) | payer MEDICARE, SELFPAY ==
[2024-06-26 10:21] VITALS: BMI 24.3
[2024-08-15 13:14] LABS: Cholesterol 139 mg/dL (140-199); Glucose 141 mg/dL (70-99); HDL Cholesterol 40 mg/dL (40-60); LDL Cholesterol Calculated 85 mg/dL (<100); Triglycerides 71 mg/dL (35-150)
[2024-08-15 14:55] LABS: Hemoglobin A1C% w Est Avg Glu 6.2 % (4.0-6.0)
== END ==
PROVIDERS: Family Provider Internal Medicine; PCP Internal Medicine; Referring Provider Internal Medicine; Visit Provider Internal Medicine
DX: R73.01 Impaired fasting glucose (principal); E78.2 Mixed hyperlipidemia
CPT/HCPCS: 36415; 80061; 82947; 83036

== ENCOUNTER → 2024-09-05 12:26 | Outpatient (CLI) | payer MEDICARE, SELFPAY ==
[2024-06-26 10:21] VITALS: BMI 24.3
[2024-09-05 12:44] LABS: Appearance Urine UA CLOUDY; Bilirubin Urine UA NEGATIVE (NEGATIVE); Color Urine UA YELLOW; Glucose Urine UA NEGATIVE (Negative); Ketones Urine UA 1+ (NEGATIVE); Leukocyte Esterase Urine UA 3+ (NEGATIVE); Nitrite Urine UA POSITIVE (Negative); Occult Blood Urine UA 2+ (Negative); Protein Urine UA 1+ (Negative); Specific Gravity Urine UA 1.020 (1.000-1.035); Urobilinogen Urine UA 1.0 E.U./dL (0.2); pH Urine UA 6.0 (4.5-8.0)
[2024-09-05 12:47] LABS: Culture Indicated Urine Specimen Cultured
== END ==
PROVIDERS: Family Provider Internal Medicine; PCP Internal Medicine; Visit Provider Urology
DX: N40.1 Benign prostatic hyperplasia with lower urinary tract symptoms (principal); N13.8 Other obstructive and reflux uropathy
CPT/HCPCS: 81001; 87077; 87086